=== PATIENT | female | born 2000 | race Caucasian/White ===

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

== ENCOUNTER → 2022-02-12 | Outpatient (CLI) | payer OTHER, SELFPAY ==
--- NOTE | 2022-02-12 14:40 | PFTCOMP ---
COMPLETE PULMONARY FUNCTION TEST INTERPRETATION Brief HPI: Patient is a 21-year-old [female male], currently under the care of Danyell Kent, who presents to [facility] for complete pulmonary function tests secondary to diagnosis of asthma. Respiratory therapist reports good effort and reproducible results. Interpretation: Forced expiration spirometry shows a mild large airways obstructive ventilatory defect with an FEV1 of 101% predicted. There is a significant bronchodilator response in FEV1 by strict ATS criteria. Spirograms are of good quality and plateau [slowly, indicating slowly emptying areas of the lungs]. The respiratory flow volume loop shows [decreased expiratory flow rates at high lung volumes consistent with small airways obstruction]. Lung volumes by body plethysmography show [a normal an elevated, a decreased] total lung capacity at 5.8 L, 97% predicted. [All other lung volumes are within normal limits.] Diffusion capacity by carbon monoxide is [normal elevated,decreased] at 101% predicted. The airway resistance is [normal elevated]. [Compared to previous pulmonary function tests from] 03/04/2018, there has been improvement in DLCO by 13%. Impression: Fully reversible mild large airways obstructive ventilatory defect with preserved lung volumes and DLCO
== END | disposition home or self-care (01) ==
LOC: PSN 13:03
PROVIDERS: PCP Family Medicine; Visit Provider Nurse Practitioner Acute Care
DX: J45.40 Moderate persistent asthma, uncomplicated (principal)
CPT/HCPCS: 94060; 94726; 94729